=== PATIENT | male | born 1950 | race Caucasian/White ===

== ENCOUNTER → 2017-08-05 | Outpatient (CLI) | payer BC ==
[2015-05-04 14:20] VITALS: BP 147/74
[~2017-08-05] MED LIST: ALLO300T PO; ASPI-630 PO; ASPI325T8 PO; ATORVASTATIN CA80 MG PO; CHOL100017 PO; CLOP75TA57 PO; CONTRAST GIVEN MC PRN; DILT120C4 PO; ERGO2000 PO; ESOM40CA PO; EZET10TA18 PO; FENO145T PO; ICOS1CAP PO; IOHEXOL 350 MG/ML 100 ML VIAL. IV ONE; LISI40TA PO; LOVA40TA2 PO; METF100010 PO; METF500T4 PO; OMEG1CAP30 PO; OMEP20CA5 PO; POTA99TA PO; POTASSIUM CHLO10 MEQ PO; PUMP160C2 PO; SAW500CA PO; TADA5TAB PO; TAMS0.4C2 PO
[2017-08-05 16:41] LABS: GFR 74.8
--- NOTE | 2017-08-08 09:32 | RAD ---
CTA abdomen and pelvis with and without contrast Indication: Follow-up endovascular repair of abdominal aortic aneurysm Comparison study: [facility] CTA abdomen and pelvis from 08/09/2014. Technique: Preliminary non-IV contrast CT images were obtained through abdomen and pelvis. Dynamic IV contrast helical CT images were then performed following IV bolus administration of contrast. Volume rendered three-dimensional and multi planar two-dimensional reconstructions were generated. Vascular findings: The aortic stent graft is unchanged in position without evidence of migration or kinking. In the interim since prior study there has been development of a eccentric posteriorly located filling defect in the left iliac limb (axial images [id number]). This focally narrows the left iliac limb by approximately 25%. The appearance is most consistent with mild in stent stenosis. Partially occlusive chronic thrombus is less likely. Aortic stent graft otherwise patent. No evidence of endoleak is identified. Aneurysm sac diameter is stable with respect comparison study. Visualized portions of the thoracic aorta are unremarkable. Minimal nonhemodynamically significant narrowings of the celiac artery and SMA are similar. Visualized renal arteries are patent. The renal artery ostia are covered by suprarenal fixation struts. Tortuosity of the left external iliac artery noted. No specifically significant aortoiliac stenosis is identified. Common femoral arteries are patent. Partially visualized proximal SFA and profunda arteries are patent. Nonvascular findings: Visualized lung bases are unremarkable. The solid and hollow viscera of the abdomen and pelvis are grossly unremarkable. No free fluid or free air is seen in the abdomen or pelvis. Degenerative changes of the spine are similar to comparison exam. Impression: 1. Interval development of eccentric filling defect in the left common iliac limb, narrowing the lumen by approximately 25%, most consistent with mild in stent stenosis. Partially occlusive chronic thrombus is less likely. 2. Otherwise stable appearance of aortobiiliac stent graft. PQRS Compliance Statement: One or more of the following individualized dose reduction techniques were utilized for this examination: 1. Automated exposure control 2. Adjustment of the mA and/or kV according to patient size 3. Use of iterative reconstruction technique
== END | disposition home or self-care (01) ==
LOC: CT 16:04
DX: I71.4 Abdominal aortic aneurysm, without rupture (principal); I77.1 Stricture of artery; E11.9 Type 2 diabetes mellitus without complications; Z95.5 Presence of coronary angioplasty implant and graft
CPT/HCPCS: 36415; 74174; 82565; 84520; Q9967

== ENCOUNTER → 2018-03-24 | Outpatient (CLI) | payer BC ==
[~2018-03-24] MED LIST changes: -ALLO300T PO; -ASPI-630 PO; -ASPI325T8 PO; -ATORVASTATIN CA80 MG PO; -CHOL100017 PO; -CLOP75TA57 PO; +CONTRAST GIVEN MC; -CONTRAST GIVEN MC PRN; -DILT120C4 PO; -ERGO2000 PO; -ESOM40CA PO; -EZET10TA18 PO; -FENO145T PO; -ICOS1CAP PO; -IOHEXOL 350 MG/ML 100 ML VIAL. IV ONE; -LISI40TA PO; -LOVA40TA2 PO; -METF100010 PO; -METF500T4 PO; -OMEG1CAP30 PO; -OMEP20CA5 PO; -POTA99TA PO; -POTASSIUM CHLO10 MEQ PO; -PUMP160C2 PO; -SAW500CA PO; -TADA5TAB PO; -TAMS0.4C2 PO
[2018-03-24] MEDS: IOHEXOL 300 MG/ML 100ML VIAL. IV (15:15)
[2018-03-24 15:55] LABS: CREATININE 1.3 mg/dL (0.7-1.3)
[2018-03-24 15:55] LABS: GFR 55.1
== END | disposition home or self-care (01) ==
LOC: CT 15:57
DX: I71.4 Abdominal aortic aneurysm, without rupture (principal); E11.9 Type 2 diabetes mellitus without complications; F17.200 Nicotine dependence, unspecified, uncomplicated; Z79.84 Long term (current) use of oral hypoglycemic drugs
CPT/HCPCS: 36415; 82565; Q9967

== ENCOUNTER → 2019-07-20 | Outpatient (CLI) | payer BC ==
[2015-05-04 14:20] VITALS: BP 147/74
[~2019-07-20] MED LIST changes: +ALLO300T PO; +ASPI-630 PO; +ASPI325T8 PO; +ATORVASTATIN CA80 MG PO; +CHOL100017 PO; +CLOP75TA57 PO; -CONTRAST GIVEN MC; +CONTRAST GIVEN. MC PRN; +DILT120C4 PO; +ERGO2000 PO; +ESOM40CA PO; +EZET10TA20 PO; +FENO145T PO; +ICOS1CAP PO; +IOHEXOL 350 MG/ML 100 ML VIAL. IV ONE; +LISI-130 PO; +LOVA40TA2 PO; +METF100010 PO; +METF500T16 PO; +OMEG1CAP30 PO; +OMEP20CA5 PO; +POTA10TA12 PO; +POTA99TA PO; +PUMP160C2 PO; +SAW500CA PO; +TADA5TAB PO; +TAMS0.4C2 PO
--- NOTE | 2019-07-23 09:21 | RAD ---
Axial CTA imaging of the abdomen and pelvis were obtained before and after the administration of 90 cc Isovue 370. Coronal and Sagittal MIP imaging is also available. Exposure: One or more of the following individualized dose reduction techniques were utilized for this examination: 1. Automated exposure control 2. Adjustment of the mA and/or kV according to patient size 3. Use of iterative reconstruction technique Indication: AAA status post repair. Comparison: 03/28/2018. Findings: The heart is not enlarged. The lung bases are clear. Liver is hypodense relative to the spleen on noncontrast imaging. The spleen, adrenals, kidneys and pancreas are unremarkable in appearance. The stomach, small and large bowel are nondistended. No evidence pathologic wall thickening. No free air or fluid. No radiologically significant retroperitoneal or mesenteric lymphadenopathy is identified. There is sigmoid diverticulosis without diverticulitis. The appendix is visualized and is unremarkable in appearance. Bony structures are normal in appearance with degenerative changes of the lumbar spine. Vascular findings: Partially visualized descending thoracic aorta is normal in appearance. The origins of the celiac axis and superior mesenteric arteries are patent without significant stenosis. Bilateral renal arteries are patent. 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 Patient is status post endovascular aortic aneurysm repair. Aneurysm measures 4.9 x 4.4 cm. This does appear to be increase in size with previous measurements of 4.1 x 4.8 cm. No clear endoleak is identified. There is persistent neointimal hyperplasia of the left iliac limb. There is persistent aneurysmal dilation of the distal uncovered right iliac artery measuring 1.5 cm. This is unchanged. The bilateral external and internal iliac arteries are patent. IMPRESSION: 1. There does appear to be a modest increase in size of the aneurysm sac when compared with prior examinations, however, endoleak is not identified. Consider delayed phase imaging on future examinations. This may help delineate any slow endoleak process. 2. Persistent left distal common iliac aneurysm. 3. Hepatic steatosis. Electronically signed by: Casey Gaston MD (07/23/2019 9:18 AM) [id number]
== END | disposition home or self-care (01) ==
LOC: CT 09:26
PROVIDERS: ATTEND Registered Nurse Medical-Surgical
DX: I72.3 Aneurysm of iliac artery (principal); K76.0 Fatty (change of) liver, not elsewhere classified; K57.30 Diverticulosis of large intestine without perforation or abscess without bleeding; I77.3 Arterial fibromuscular dysplasia; I65.23 Occlusion and stenosis of bilateral carotid arteries; I71.4 Abdominal aortic aneurysm, without rupture; Z95.828 Presence of other vascular implants and grafts; Z88.8 Allergy status to other drugs, medicaments and biological substances
CPT/HCPCS: 74174; Q9967

== ENCOUNTER → 2020-02-13 | Outpatient (CLI) | payer BC ==
[2015-05-04 14:20] VITALS: BP 147/74
[~2020-02-13] MED LIST changes: -CONTRAST GIVEN. MC PRN; -IOHEXOL 350 MG/ML 100 ML VIAL. IV ONE
--- NOTE | 2020-02-13 11:30 | KCIC ---
EXAM: MRI left knee without contrast. HISTORY: Chronic left anterior knee pain. TECHNIQUE: MRI of the left knee was performed without intravenous contrast. COMPARISON: None. FINDINGS: The anterior cruciate ligament and posterior cruciate ligament are intact. The medial collateral ligament and lateral collateral ligament complex are intact. The patellar retinacula and extensor mechanism are intact. There is a degenerative tear of the posterior horn and body of the medial meniscus. There is a small free edge tear of the posterior horn of the lateral meniscus. There is full-thickness cartilage loss throughout the weightbearing portion of the medial compartment. The lateral and patellofemoral compartmental cartilage are preserved. There is moderate osteophytosis along the medial compartment. There are small osteophytes along the lateral and patellofemoral compartments. There is a small joint effusion. There is a small popliteal cyst measuring 2.8 x 2.1 x 5.6 cm. The gastrocnemius-semimembranosus bursa contains multiple loose bodies measuring up to 1.6 cm. IMPRESSION: 1. Severe medial compartmental osteoarthritis with full-thickness cartilage loss along the weightbearing portion. 2. Degenerative tear of the posterior horn and body of the medial meniscus. 3. Small joint effusion. Small popliteal cyst containing loose bodies measuring up to 1.6 cm. Electronically signed by: Evangelina Aviles MD (02/13/2020 11:27 AM) [id number]
== END ==
LOC: KCIC MRI 09:55
PROVIDERS: ATTEND Family Medicine
DX: S83.242A Other tear of medial meniscus, current injury, left knee, initial encounter (principal); M17.12 Unilateral primary osteoarthritis, left knee; M25.462 Effusion, left knee; M71.22 Synovial cyst of popliteal space [Baker], left knee; X58.XXXA Exposure to other specified factors, initial encounter; Y93.89 Activity, other specified; Y92.89 Other specified places as the place of occurrence of the external cause; Y99.8 Other external cause status
CPT/HCPCS: 73721

== ENCOUNTER → 2021-03-18 | Outpatient (CLI) | payer BC ==
[2015-05-04 14:20] VITALS: BP 147/74
[~2021-03-18] MED LIST changes: +IOHEXOL 350 MG/ML 100 ML VIAL. IV ONE
[2021-03-18 09:11] LABS: CREATININE 1.2 mg/dL (0.7-1.3); GFR 59.9
== END ==
LOC: CT 08:23
PROVIDERS: ATTEND Surgery
DX: Z95.828 Presence of other vascular implants and grafts (principal)
CPT/HCPCS: 36415; 82565; 84520

== ENCOUNTER → 2021-03-26 | Outpatient (CLI) | payer BC ==
[2015-05-04 14:20] VITALS: BP 147/74
--- NOTE | 2021-03-26 12:04 | RAD ---
EXAMINATION: CT abdomen and pelvis with and without IV contrast. INDICATION: Endovascular stent graft. Follow-up examination. TECHNIQUE: Axial CT images of the abdomen and pelvis were obtained. 3-D volume rendering, coronal and sagittal MIP reformats obtained. COMPARISON: 07/20/2019. Exposure: One or more of the following individualized dose reduction techniques were utilized for thi s examination: 1. Automated exposure control 2. Adjustment of the mA and/or kV according to patient size 3. Use of iterative reconstruction technique. FINDINGS: LOWER CHEST: Bibasilar subsegmental atelectasis. ABDOMEN/PELVIS: Redemonstrated infrarenal aortobiiliac endograft which appears patent. No evidence of endoleak. The t hrombosed aneurysmal sac measures approximately 4.7 x 4.2 cm, unchanged since 2019. Suprarenal abdomi nal aorta is normal in caliber with mild atherosclerotic calcifications. Celiac trunk, SMA and bilate ral renal arteries are patent. INEZ origin is occluded but reconstitution distally via collaterals. St able left common iliac artery aneurysm measures 1.5 cm. Bilateral internal, external iliac arteries a re normal in caliber. Bilateral common femoral and visualized superficial and deep femoral arteries a re normal in caliber with mild atherosclerotic calcifications. Replaced left hepatic artery arises fr om left gastric artery. Liver, gallbladder, spleen, pancreas, adrenals and kidneys are unremarkable. Unchanged 1.2 cm hypoden se lesion partially exophytic from the inferior pole left kidney, likely cyst. No hydronephrosis or n ephrolithiasis in either kidney. No bowel obstruction or wall thickening. Colonic diverticulosis with out diverticulitis. Normal appendix. No abdominopelvic lymphadenopathy. No pneumoperitoneum or ascite s. Unremarkable urinary bladder and prostate. No suspicious pelvic masses. MUSCULOSKELETAL: Grade 1 anterolisthesis of L4 over L5. Multilevel degenerative changes in the spine. Bone island in t he mid left rib. Small fat-containing left inguinal hernia, unchanged since prior exam. IMPRESSION: 1. Stable infrarenal aortobiiliac endograft with no evidence of endoleak. 2. Stable mild left common iliac artery aneurysm. 3. Other chronic/incidental findings, as described above. Electronically signed by: Ej Lees MD (03/26/2021 12:02 PM) [id number]
== END ==
LOC: CT 09:07
PROVIDERS: ATTEND Surgery
DX: K40.90 Unilateral inguinal hernia, without obstruction or gangrene, not specified as recurrent (principal); J98.11 Atelectasis; I72.3 Aneurysm of iliac artery
CPT/HCPCS: 74174; Q9967